=== PATIENT | female | born 1950 | race Caucasian/White ===

== ENCOUNTER 2017-05-04 01:53 | Emergency (ER) | payer MEDICARE, OTHER ==
--- NOTE | 2017-05-04 02:39 | XR ---
EXAMINATION TYPE: XR chest 1V portable DATE OF EXAM: 05/04/2017 COMPARISON: 05/31/2008 HISTORY: Chest pain TECHNIQUE: Single frontal view of the chest is obtained. FINDINGS: There is no heart failure nor confluent pneumonic infiltrate. Heart size is normal. There are chest leads. Bony thorax is intact. IMPRESSION: Normal chest. No change.
[2017-05-04 02:56] LABS: Basophils # (A) 0.1 k/uL (0-0.2); Basophils % (A) 1 %; Eosinophils # (A) 0.1 k/uL (0-0.7); Eosinophils % (A) 1 %; HCT 46.4 % (34.0-46.0); HGB 15.1 gm/dL (11.4-16.0); Lymphocytes % (A) 41 %; MCH 30.2 pg (25.0-35.0); MCHC 32.6 g/dL (31.0-37.0); MCV 92.6 fL (80.0-100.0); Mean Platelet Volume 7.3; Monocytes # (A) 0.7 k/uL (0-1.0); Monocytes % (A) 9 %; Neutrophils # (A) 3.2 k/uL (1.3-7.7); Neutrophils % (A) 44 %; Platelet Count 278 k/uL (150-450); RBC 5.01 m/uL (3.80-5.40); RDW 12.3 % (11.5-15.5); WBC 7.2 k/uL (3.8-10.6)
[2017-05-04 02:59] LABS: Partial Thromboplastin Time 23.6 sec (22.0-30.0); Prothrombin Time 9.9 sec (9.0-12.0)
[2017-05-04 03:03] LABS: ALT 25 U/L (9-52); AST 21 U/L (14-36); Albumin 4.4 g/dL (3.5-5.0); Alkaline Phosphatase 74 U/L (38-126); Amylase 47 U/L (30-110); Anion Gap 13 mmol/L; Blood Urea Nitrogen 13 mg/dL (7-17); Calcium 10.1 mg/dL (8.4-10.2); Carbon Dioxide 28 mmol/L (22-30); Chloride 103 mmol/L (98-107); D-Dimer <0.17 mg/L FEU (<0.60); Glucose 94 mg/dL (74-99); Lipase 171 U/L (23-300); Magnesium 2.1 mg/dL (1.6-2.3); Potassium 4.3 mmol/L (3.5-5.1); Sodium 144 mmol/L (137-145); Total Bilirubin 0.3 mg/dL (0.2-1.3); Total Protein 7.2 g/dL (6.3-8.2)
[2017-05-04 03:10] LABS: Creatine Kinase 58 U/L (30-135)
[2017-05-04 03:23] LABS: Creatine Kinase MB 0.6 ng/mL (0.0-2.4); Troponin I <0.012 ng/mL (0.000-0.034)
[2017-05-04] MEDS ORDERED: KETOROLAC 30 MG/ML 1 ML VIAL IVP STA (03:31)
[2017-05-04 04:01] VITALS: RESP 16
--- NOTE | 2017-05-04 04:07 | ED ---
Chest Pain HPI - General Chief Complaint: Chest Pain Stated Complaint: SOB, side/back pain Time Seen by Provider: 05/04/17 02:13 Source: patient Mode of arrival: ambulatory Limitations: no limitations - History of Present Illness Initial Comments: This patient is 67-year-old woman presenting to be evaluated for epigastric pain that is also radiating towards her left shoulder. She states that the symptoms began about 2 days ago little more intense over the past evening. MD Complaint: chest pain Onset/Timin -: days(s) Onset: during rest Pain Location: epigastric Pain Radiation: LUE Severity: moderate Quality: aching Consistency: constant Improves With: nothing Worsens With: nothing Treatments Prior to Arrival: none - Related Data Home Medications Medication Instructions Recorded Confirmed Beta Magnesium (Unknown Dose) 1 tab PO DAILY 05/18/15 05/23/15 Bioflavin (Unknown Dose) 1 tab PO DAILY 05/18/15 05/23/15 Cholecalciferol [Vitamin D3] 1,000 unit PO DAILY 05/18/15 05/23/15 Cyanocobalamin [Vitamin B-12] 500 mcg PO DAILY 05/18/15 05/23/15 Kelp 1 tab PO DAILY 05/18/15 05/23/15 L.acidoph,Paracasei, B.lactis 1 tab PO DAILY 05/18/15 05/23/15 [Probiotic] Vagistat (Unknown Dose) 1 applic VAGINAL DIRECTED 05/18/15 05/23/15 Allergies Allergy/AdvReac Type Severity Reaction Status Date / Time clindamycin Allergy severe n/v Verified 05/04/17 02:04 esomeprazole magnesium Allergy "made my Verified 05/04/17 02:04 [From Nexium] stomach worse" metoclopramide HCl Allergy Unknown Verified 05/04/17 02:04 [From Reglan] prednisone Allergy Itching/severe Verified 05/04/17 02:04 nausea/vomiting Review of Systems ROS Statement: Those systems with pertinent positive or pertinent negative responses have been documented in the HPI. ROS Other: All systems not noted in ROS Statement are negative. Constitutional: Denies: fever, chills, weakness Respiratory: Reports: dyspnea. Denies: cough, wheezes, hemoptysis Cardiovascular: Reports: chest pain. Denies: palpitations, orthopnea, edema, syncope Gastrointestinal: Denies: abdominal pain, nausea, vomiting Genitourinary: Denies: dysuria, hematuria Musculoskeletal: Denies: back pain Skin: Denies: rash Neurological: Denies: headache, weakness, numbness EKG Findings - EKG Results: EKG: interpreted by JANUSZ, sinus rhythm (Rate 79 bpm), normal axis, normal QRS, normal ST/T, no acute changes - ND, Pacemaker, Normal: Normal tracing: normal tracing Past Medical History Past Medical History: Musculoskeletal Disorder, Osteoarthritis (OA) Additional Past Medical History / Comment(s): current yeast infection, constipation, hemmoroids, scoliosis, History of Any Multi-Drug Resistant Organisms: None Reported Additional Past Surgical History / Comment(s): sx for val. detached retina's, D& C Past Anesthesia/Blood Transfusion Reactions: Postoperative Nausea & Vomiting ( PONV) Past Psychological History: No Psychological Hx Reported Smoking Status: Former smoker Past Alcohol Use History: None Reported Past Drug Use History: None Reported General Exam Limitations: no limitations General appearance: alert, in no apparent distress Head exam: Present: atraumatic, normocephalic Eye exam: Present: normal appearance. Absent: scleral icterus, conjunctival injection ENT exam: Present: normal oropharynx Neck exam: Present: normal inspection, full ROM Respiratory exam: Present: normal lung sounds bilaterally. Absent: respiratory distress, wheezes, rales, rhonchi, stridor Cardiovascular Exam: Present: regular rate, normal rhythm, normal heart sounds. Absent: systolic murmur, diastolic murmur, rubs, gallop GI/Abdominal exam: Present: soft. Absent: distended, tenderness, guarding, rebound, rigid Extremities exam: Present: normal inspection, normal capillary refill. Absent: pedal edema, calf tenderness Back exam: Present: normal inspection. Absent: CVA tenderness (R), CVA tenderness (L) Neurological exam: Present: alert Skin exam: Present: warm, dry, intact, normal color. Absent: rash Course Vital Signs 05/04/17 05/04/17 05/04/17 02:00 04:00 04:41 Temperature 97.2 F L 97.3 F L Pulse Rate 87 89 83 Respiratory 18 16 16 Rate Blood Pressure 139/69 157/65 141/64 O2 Sat by Pulse 99 98 99 Oximetry Disposition Clinical Impression: Chest pain Disposition: HOME SELF-CARE Condition: Good Instructions: Chest Pain (ED) Referrals: Chris Marvin MD [Primary Care Provider] - 1-2 days Shubham Waterman MD [STAFF PHYSICIAN] - 1-2 days
[2017-05-04 04:42] VITALS: BP 141/64; PULSE 83; TEMP 97.3
== END 2017-05-04 04:42 | disposition home or self-care (01) ==
LOC: EC 01:53
DX: R07.9 Chest pain, unspecified (principal); R06.02 Shortness of breath; Z79.899 Other long term (current) drug therapy; Z88.1 Allergy status to other antibiotic agents; Z88.8 Allergy status to other drugs, medicaments and biological substances; Z87.891 Personal history of nicotine dependence
CPT/HCPCS: 36415; 93005; 85379; 80053; 82150; 82550; 82553; 83690; 83735; 84484; 85025; 85610; 85730; 71045; 99285; 96374; J1885

== ENCOUNTER → 2022-03-12 | Outpatient (CLI) | payer MEDICARE ==
--- NOTE | 2022-03-13 07:26 | US ---
EXAMINATION TYPE: US mass soft tissue chest/back DATE OF EXAM: 03/12/2022 COMPARISON: NONE CLINICAL HISTORY: D17.9 BENIGN LIPOMATOUS NEOPLASM. Patient states she feels a "hard golf ball" in ri ght gluteal region when she sits that sometimes pulls at her rectum. TECHNIQUE: Grayscale imaging in the area of palpable abnormality within the right gluteal region. FINDINGS: Patients area of concern scanned while patient was prone and leaning over. No prominent m asses or lesions seen. Contralateral images taken. IMPRESSION: No evidence of mass or organizing fluid collection. Consider further evaluation with crown buffer ss-sectional imaging as clinically warranted with palpable marker placed.
== END | disposition home or self-care (01) ==
LOC: RADUSWWP 15:30
PROVIDERS: ATTEND Family Medicine
DX: D17.9 Benign lipomatous neoplasm, unspecified (principal)